=== PATIENT | male | born 1990 | race Two or more races ===

== ENCOUNTER 2019-06-16 19:52 | Inpatient (IN) | payer OTHER ==
[~2019-06-16] VITALS: Ht 172.7 cm; Wt 101.9 kg
[2019-06-16 21:08] LABS: EOSINOPHILS % (AUTO) 1.1 % (1.0-6.0); HEMOGLOBIN 15.7 g/dL (13.5-17.5); LYMPHOCYTES # (AUTO) 1.8 K/uL (1.0-4.8); LYMPHOCYTES % (AUTO) 22.1 % (22.0-44.0); MEAN CORPUSCULAR HEMOGLOBIN 31.1 pg (26.0-34.0); MEAN CORPUSCULAR HGB CONC 34.8 G/dL (31.0-37.0); MEAN CORPUSCULAR VOLUME 89 fL (80-100); MONOCYTES # (AUTO) 0.9 K/uL (0.1-1.0); MONOCYTES % (AUTO) 11.7 % (2.0-9.0); NEUTROPHILS # (AUTO) 5.2 K/uL (1.8-7.7); NEUTROPHILS % (AUTO) 64.1 % (40.0-70.0); PLATELET COUNT (AUTO) 262 K/uL (150-450); RED BLOOD CELL COUNT(AUTO) 5.03 MIL/uL (4.50-5.90); RED CELL DISTRIBUTION WIDTH 12.9 % (11.5-14.5)
[2019-06-16 21:18] LABS: ANION GAP 11 mmol/L (8-16); CARBON DIOXIDE 24 mmol/L (22-29); CHLORIDE 103 mmol/L (98-107); CREATININE 0.92 mg/dL (0.60-1.30); GLOMERULAR FILTR. RATE CALC > 60 mL/min (>60); GLUCOSE,RANDOM 90 mg/dL (70-110); POTASSIUM 3.9 mmol/L (3.5-5.1); SODIUM SERUM 138 mmol/L (136-145); UREA NITROGEN, BLOOD 8 mg/dL (7-18)
[2019-06-16 21:24] LABS: ALANINE AMINOTRANSFERASE 24 U/L (12-78); ALBUMIN 4.1 g/dL (3.4-5.0); ALKALINE PHOSPHATASE 90 U/L (46-116); ASPARTATE AMINOTRANSFERASE 21 U/L (15-37); BILIRUBIN,TOTAL 0.9 mg/dL (0.1-1.0); TOTAL PROTEIN, SERUM 7.6 g/dL (6.4-8.2)
[2019-06-16] MEDS ORDERED: ONDANSETRON HCL 4 MG/2 ML VIAL IVP ONE (21:30)
[2019-06-16] MEDS ORDERED: SODIUM CHLORIDE 0.9% 1,000 ML IV ONE (21:30)
[2019-06-16] MEDS ORDERED: ONDANSETRON HCL 4 MG/2 ML VIAL IVP PRN (21:45)
[2019-06-16] MEDS ORDERED: 0.9% SODIUM CHLORIDE 10 ML SYRINGE IVP PRN (21:45)
[2019-06-16] MEDS ORDERED: ACETAMINOPHEN 325 MG TABLET PO PRN (21:45)
[2019-06-16 23:43] VITALS: BP 97/63
[2019-06-17] MEDS ORDERED: HydrOXYzine PAMOATE 50 MG CAPSULE PO PRN ×2 (03:15→08:30)
[2019-06-17] MEDS ORDERED: CloNIDine HCL 0.1 MG TABLET PO PRN ×2 (03:15→08:30)
[2019-06-17] MEDS ORDERED: 0.9% SODIUM CHLORIDE 10 ML SYRINGE IVP PRN (03:15)
[2019-06-17] MEDS ORDERED: MAG HYDROX/AL HYDROX/SIMETH ES 30 ML SUSPENSION UDCUP PO PRN ×2 (03:15→08:30)
[2019-06-17 05:28] VITALS: BP 111/65
[2019-06-17] MEDS: CloNIDine HCL 0.1 MG TABLET PO SCH ×4 (06:06→20:22)
[2019-06-17] MEDS: IBUPROFEN 600 MG TABLET PO PRN ×2 (06:18→20:16)
[2019-06-17 06:20] LABS: EOSINOPHILS % (AUTO) 1.8 % (1.0-6.0); HEMATOCRIT 43.9 % (41-53); HEMOGLOBIN 15.2 g/dL (13.5-17.5); LYMPHOCYTES # (AUTO) 1.8 K/uL (1.0-4.8); LYMPHOCYTES % (AUTO) 25.7 % (22.0-44.0); MEAN CORPUSCULAR HGB CONC 34.7 G/dL (31.0-37.0); MEAN CORPUSCULAR VOLUME 89 fL (80-100); MONOCYTES # (AUTO) 0.9 K/uL (0.1-1.0); MONOCYTES % (AUTO) 12.3 % (2.0-9.0); NEUTROPHILS # (AUTO) 4.2 K/uL (1.8-7.7); NEUTROPHILS % (AUTO) 59.2 % (40.0-70.0); PLATELET COUNT (AUTO) 260 K/uL (150-450); RED BLOOD CELL COUNT(AUTO) 4.91 MIL/uL (4.50-5.90)
[2019-06-17 06:36] LABS: ANION GAP 10 mmol/L (8-16); CARBON DIOXIDE 26 mmol/L (22-29); CHLORIDE 104 mmol/L (98-107); GLUCOSE,RANDOM 89 mg/dL (70-110); POTASSIUM 3.5 mmol/L (3.5-5.1); SODIUM SERUM 140 mmol/L (136-145)
[2019-06-17 06:46] LABS: CALCIUM, TOTAL 8.9 mg/dL (8.8-10.5); CREATININE 0.85 mg/dL (0.60-1.30); GLOMERULAR FILTR. RATE CALC > 60 mL/min (>60); UREA NITROGEN, BLOOD 7 mg/dL (7-18)
[2019-06-17 07:40] VITALS: BP 112/69
[2019-06-17] MEDS ORDERED: LORazepam 1 MG TABLET PO PRN (08:30)
[2019-06-17] MEDS ORDERED: ACETAMINOPHEN 325 MG TABLET PO PRN (08:30)
[2019-06-17] MEDS ORDERED: TraZODone HCL 50 MG TABLET PO PRN (08:30)
[2019-06-17] MEDS ORDERED: DICYCLOMINE HCL 10 MG CAPSULE PO PRN (08:30)
[2019-06-17] MEDS ORDERED: PROMETHAZINE HCL 25 MG TABLET PO PRN (08:30)
[2019-06-17] MEDS ORDERED: LOPERAMIDE HCL 2 MG/15 ML SUSPENSION UDCUP PO PRN (08:30)
[2019-06-17] MEDS ORDERED: BACLOFEN 10 MG TABLET PO PRN (08:30)
[2019-06-17] MEDS: DOCUSATE SODIUM 100 MG CAPSULE PO SCH ×2 (09:29→20:22)
[2019-06-17] MEDS: FAMOTIDINE 10 MG/ML 2 ML VIAL IVP SCH (09:31)
[2019-06-17] MEDS: SODIUM CHLORIDE 0.45% 1,000 ML IV SCH (09:36)
[2019-06-17 12:02] VITALS: BP 85/53
[2019-06-17 16:47] VITALS: BP 113/69
[2019-06-17 20:09] VITALS: BP 101/61
[2019-06-17 23:29] LABS: AMPHET/METH SCREEN,URINE POSITIVE (NEGATIVE); BARBITURATE SCREEN, URINE NEGATIVE (NEGATIVE); BENZODIAZEPINES SCREEN,URINE NEGATIVE (NEGATIVE); CANNABINOID SCREEN,URINE POSITIVE (NEGATIVE); COCAINE SCREEN,URINE NEGATIVE (NEGATIVE); METHADONE SCREEN, URINE NEGATIVE (NEGATIVE); OPIATE SCREEN,URINE NEGATIVE (NEGATIVE)
[2019-06-17 23:35] LABS: PHENCYCLIDINE SCREEN,URINE NEGATIVE (NEGATIVE)
[2019-06-18 00:13] VITALS: BP 107/57
[2019-06-18] MEDS: SODIUM CHLORIDE 0.45% 1,000 ML IV SCH ×2 (00:16→10:02)
[2019-06-18 04:00] VITALS: BP 107/59
[2019-06-18] MEDS: IBUPROFEN 600 MG TABLET PO PRN (05:07)
[2019-06-18] MEDS: CloNIDine HCL 0.1 MG TABLET PO SCH ×5 (05:08→21:08)
[2019-06-18 06:26] LABS: BASOPHILS % (AUTO) 1.3 % (0.0-2.0); EOSINOPHILS % (AUTO) 2.9 % (1.0-6.0); HEMATOCRIT 44.4 % (41-53); HEMOGLOBIN 15.5 g/dL (13.5-17.5); LYMPHOCYTES % (AUTO) 31.9 % (22.0-44.0); MEAN CORPUSCULAR HEMOGLOBIN 31.1 pg (26.0-34.0); MEAN CORPUSCULAR HGB CONC 34.9 G/dL (31.0-37.0); MEAN CORPUSCULAR VOLUME 89 fL (80-100); MONOCYTES # (AUTO) 0.8 K/uL (0.1-1.0); MONOCYTES % (AUTO) 13.3 % (2.0-9.0); NEUTROPHILS # (AUTO) 3.2 K/uL (1.8-7.7); NEUTROPHILS % (AUTO) 50.6 % (40.0-70.0); PLATELET COUNT (AUTO) 257 K/uL (150-450); RED BLOOD CELL COUNT(AUTO) 4.98 MIL/uL (4.50-5.90); RED CELL DISTRIBUTION WIDTH 12.8 % (11.5-14.5)
[2019-06-18 06:27] LABS: ANION GAP 7 mmol/L (8-16); CALCIUM, TOTAL 8.5 mg/dL (8.8-10.5); CARBON DIOXIDE 26 mmol/L (22-29); CHLORIDE 105 mmol/L (98-107); CREATININE 0.97 mg/dL (0.60-1.30); GLOMERULAR FILTR. RATE CALC > 60 mL/min (>60); GLUCOSE,RANDOM 86 mg/dL (70-110); POTASSIUM 3.6 mmol/L (3.5-5.1); SODIUM SERUM 138 mmol/L (136-145); UREA NITROGEN, BLOOD 7 mg/dL (7-18)
[2019-06-18 07:55] VITALS: BP 107/56
[2019-06-18] MEDS: FAMOTIDINE 10 MG/ML 2 ML VIAL IVP SCH (10:02)
[2019-06-18] MEDS: DOCUSATE SODIUM 100 MG CAPSULE PO SCH ×2 (10:02→21:09)
[2019-06-18] MEDS: KETOROLAC TROMETHAMINE 30 MG/ML VIAL IVP PRN ×2 (10:02→15:34)
[2019-06-18 12:20] VITALS: BP_SYST 107; BP_SYST 97; BP_DIAS 65; BP_DIAS 68
[2019-06-18] MEDS: ONDANSETRON HCL 4 MG/2 ML VIAL IVP PRN (15:34)
[2019-06-18 16:36] VITALS: BP 104/62
[2019-06-18 21:41] VITALS: BP 113/64
[2019-06-19] VITALS: BP 111/68
[2019-06-19] MEDS: CloNIDine HCL 0.1 MG TABLET PO SCH ×4 (06:00→23:32)
[2019-06-19 07:03] VITALS: BP 109/61
[2019-06-19] MEDS: ONDANSETRON HCL 4 MG/2 ML VIAL IVP PRN (08:49)
[2019-06-19] MEDS: DOCUSATE SODIUM 100 MG CAPSULE PO SCH ×2 (08:52→19:57)
[2019-06-19] MEDS: FAMOTIDINE 10 MG/ML 2 ML VIAL IVP SCH (09:11)
[2019-06-19 11:56] VITALS: BP 110/70
[2019-06-19] MEDS ORDERED: LACTULOSE 20 GM/30 ML SOLUTION UDCUP PO SCH (14:45)
[2019-06-19 15:35] VITALS: BP 94/61
[2019-06-19] MEDS ORDERED: IOVERSOL 320 MG/ML 100 ML VIAL ONE (17:06)
[2019-06-19] MEDS ORDERED: SODIUM CHLORIDE 0.9% 100 ML ONE (17:06)
[2019-06-19] MEDS: LACTULOSE 20 GM/30 ML SOLUTION UDCUP PO SCH ×2 (17:29→23:33)
[2019-06-19] MEDS: SODIUM CHLORIDE 0.45% 1,000 ML IV SCH (17:30)
[2019-06-19 19:58] VITALS: BP 95/60
[2019-06-19 23:52] VITALS: BP 100/61
[2019-06-20 05:15] VITALS: BP 103/70
[2019-06-20] MEDS: CloNIDine HCL 0.1 MG TABLET PO SCH ×2 (05:56→13:16)
[2019-06-20] MEDS: SODIUM CHLORIDE 0.45% 1,000 ML IV SCH (05:57)
[2019-06-20 08:13] VITALS: BP 105/74
[2019-06-20] MEDS: DOCUSATE SODIUM 100 MG CAPSULE PO SCH (09:00)
[2019-06-20] MEDS: FAMOTIDINE 10 MG/ML 2 ML VIAL IVP SCH (09:03)
[2019-06-20 12:11] VITALS: BP 110/66
== END 2019-06-20 15:29 | DRG 897 ==
LOC: EMS 19:55 → 6S 21:30
PROVIDERS: ADMIT Internal Medicine; ATTEND Internal Medicine
DX: F11.23 Opioid dependence with withdrawal (principal); F17.210 Nicotine dependence, cigarettes, uncomplicated; F19.10 Other psychoactive substance abuse, uncomplicated; K59.00 Constipation, unspecified; F12.90 Cannabis use, unspecified, uncomplicated
CPT/HCPCS: 74177; 96374; G0480; J1885; J2405; J3490; J7030; J7050

== ENCOUNTER 2024-11-03 13:02 | Emergency (ER) | payer OTHER ==
[~2024-11-03] VITALS: Ht 170.2 cm; Wt 88.6 kg
[2024-11-03 13:31] VITALS: TEMP 98.2
[2024-11-03 14:48] VITALS: BP 105/63; PULSE 71; RESP 18; O2SAT 99
== END 2024-11-03 14:55 | disposition left against medical advice (07) ==
LOC: EMS 13:05
DX: F11.23 Opioid dependence with withdrawal (principal); F12.90 Cannabis use, unspecified, uncomplicated; F15.90 Other stimulant use, unspecified, uncomplicated; Z02.89 Encounter for other administrative examinations
CPT/HCPCS: 99283; Z7502